=== PATIENT | female | born 1985 | race Caucasian/White ===

== ENCOUNTER 2024-10-27 10:43 | Outpatient (AMB) | payer BC, SELFPAY ==
--- NOTE | 2024-10-27 11:04 | A.SPINEOV_ITS ---
Intake Visit Reasons: Left leg numbness hx of spinal fusion Intake Note: Ms. Eric is here today c/o left leg numbness. MRI done @ MRI done @ [facility] (brought disc) Manufacturing Assistant Required: No Assessment & Plan Assessment & Plan (1) Lumbar spinal stenosis due to adjacent segment disease after fusion procedure: Code(s): M48.061 - Spinal stenosis, lumbar region without neurogenic claudication; M51.369 - Other intervertebral disc degeneration, lumbar region without mention of lumbar back pain or lower extremity pain; Z98.1 - Arthrodesis status Category: Medical Plan: Dear colleague Thank you for referring Nuris Eric to the office today with a chief complaint of left leg pain and numbness. HPI: This 39-year-old female has a history of correction of the lumbar spondylolisthesis L4-5 in 2011 from which she recovered well. 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 She states that since approximately 1 year she is developing pain and numbness after standing. The pain radiates from her left back to the front of her left thigh and sometimes goes below the knee. She denies weakness. Sitting down alleviates his symptoms. The right side is unaffected. PMH: Lumbar fusion,Loeys juvenal syndrome, hernia repair Medications: None Allergies: Vancomycin Social history: Self employed. Nonsmoker Physical Exam: Pleasant female. Straight leg raise is negative. No abnormalities for motor sensation or reflexes. She is able to reproduce the numbness down the left leg after standing in the office. Radiological Studies: MRI done at [facility] on on 09/27/2024 shows status post L4-5 lumbar fusion. Importantly there is severe left L4 foraminal stenosis due to adjacent segment disease and a unilateral collapse of the disc space towards the left side. There is a grade 1 spondylolisthesis at this level. Dynamic lumbar x-rays shows the L3-4 spondylolisthesis and unilateral collapse of the disc space causing a deviation of the lumbar spine in the coronal plane towards the left side. Impression/Plan: This patient is suffering from a left L4 radiculopathy due to severe neuroforaminal stenosis. The treatment for this is surgery. There are 2 options being a left L4 foraminotomy or an L3-4 lumbar fusion to indirectly decompress the nervous structures and to correct the spinal deformity and spondylolisthesis. I prefer the 2nd option. I think a foraminotomy only will not be a permanent solution due to the presence of the deformity due to the unilateral disc collapse and spondylolisthesis. I offered her an oblique lumbar interbody fusion L3-4 and removal of posterior L4-5 instrumentation and reinsertion of instrumentation at L3-L4. She will call the office of her previous surgeon to see what kind of instrumentation was used during the 1st surgery. She is tentatively scheduled for 12/13/2024 Thank you for allowing me to participate in your patients care. total time spent was 50 minutes in counseling ,coordination of plan, personal review of imaging, surgical decision making and subsequent plan Rod Palmer MD, PhD Spine Fellowship Trained Neurosurgeon Director, [facility] Orders: Orders XR lumbar spine 4V min Today M48.061 - Spinal stenosis, lumbar region without neurogenic claudication, M51.369 - Other intervertebral disc degeneration, lumbar region without mention of lumbar back pain or lower extremity pain, Z98.1 - Arthrodesis status Coding Level of Care Code New Pt Level 4 (89094) Diagnoses Lumbar spinal stenosis due to adjacent segment disease after fusion procedure M48.061; M51.369; Z98.1
== END 2024-10-27 12:31 | disposition home or self-care (01) ==
LOC: HO.HNS 10:43
PROVIDERS: PCP Internal Medicine; Visit Provider Neurological Surgery
DX: M48.061 Spinal stenosis, lumbar region without neurogenic claudication (principal); M51.369 Other intervertebral disc degeneration, lumbar region without mention of lumbar back pain or lower extremity pain; Z98.1 Arthrodesis status
CPT/HCPCS: 99204

== ENCOUNTER 2024-10-27 10:43 | Outpatient (REF) | payer BC, SELFPAY ==
--- NOTE | ~2024-10-27 | XR_ITS ---
EXAMINATION: X-ray lumbar spine 4 views minimal. CLINICAL INFORMATION: Spinal stenosis, lumbar region without neurogenic claudication. TECHNIQUE: AP and lateral views neutral flexion and extension position. COMPARISON: None FINDINGS: Status post transpedicle screws at L4 and L5 and intervertebral disc spacer placement at L4-5. No gross malalignment in neutral, flexion or extension position. Status post laminectomies L4-5 and resection of the posterior spinous processes. Levoconvex rotoscoliosis apex at L1-2. Multilevel lower thoracic and upper lumbar spondylosis. Vascular clips right upper quadrant abdomen and likely cholecystectomy procedure. XR/XR lumbar spine 4V min IMPRESSION: Status post posterior lumbar fusion and intervertebral disc spacer placement at L4-5 without acute fracture or gross listhesis nor instability. Electronically signed by: Puneet Quijano MD 10/27/2024 12:18 PM EDT
== END 2024-10-27 10:44 | disposition home or self-care (01) ==
LOC: HO.HOSX 10:43
PROVIDERS: PCP Internal Medicine; Visit Provider Neurological Surgery
DX: M48.061 Spinal stenosis, lumbar region without neurogenic claudication (principal); Z98.1 Arthrodesis status; M51.369 Other intervertebral disc degeneration, lumbar region without mention of lumbar back pain or lower extremity pain
CPT/HCPCS: 72110

== ENCOUNTER → 2024-10-27 11:57 | Outpatient (BNV) | payer BC, SELFPAY | PROVIDERS: PCP Internal Medicine; Visit Provider Radiology Diagnostic Radiology | DX: M48.061 Spinal stenosis, lumbar region without neurogenic claudication (principal) | CPT/HCPCS: 72110 ==

== ENCOUNTER 2024-12-13 05:59 | Inpatient (IN) | payer BC, SELFPAY ==
[2024-11-29 12:19] VITALS: BP 111/58; PULSE 60; RESP 18; O2SAT 99; BMI 27.1
--- NOTE | 2024-11-29 12:33 | HO.ANESPROP2 ---
Documented by User: Brianna Morejon NP 12/11/24 14:59 HPI - Anesthesia Eval Consult details Narrative: 39yo F for L3-4 Oblique Lumbar Interbody Fusion and Removal of posterior L4-5 instrumentation (insertion @ L3-4, 12/13/24 No recent illness No CP/SOB with exercise 1 hour daily (treadmill/peloton) Loeys-Ej syndrome (connective tissue disease) - monitored by [facility] for AAA/fam hx. None for self TMJ s/p surgical repair 2012 - able to open fully with small shift to right PONV - scop patch effective Jehova's witness - no whole blood, no RBC, no platelets, no plasma - OK to accept albumin, TXA, clotting factors Mom is HCP and will be in waiting room [facility] Active Problems Active Problems: All Active Problems Lumbar spinal stenosis due to adjacent segment disease after fusion procedure (Acute) Past Medical History Medical History Arthritis PONV (postoperative nausea and vomiting) POTS (postural orthostatic tachycardia syndrome) TMJ (temporomandibular joint syndrome) Loeys-Ej syndrome Lumbar spinal stenosis Family History Family history of problems with anesthesia: No Surgical History Surgical History Hx laparoscopic cholecystectomy History of esophagogastroduodenoscopy (EGD) History of mandibular surgery Hx of knee surgery Hx of hernia repair Hx of spinal fusion History of Problems with Anesthesia: No Social History Social History Household Members Other:: mother Are you a primary patient care nursing assistant to a significant other at home: Yes (to mother) Do you presently have visiting nurse or other home services: No Patient Tobacco Use Status: Never used Tobacco Use of substances other than those prescribed or required for medical reasons: No Have you been hit, kicked, punched, or otherwise hurt by someone within the past year? If so, by whom?: No Spiritual Healthcare Practices: no Protestant Healthcare Practices: yes-Jehovah Witness Cultural Healthcare Practices: no Are you DNR?: No Advance Directives: Yes (HCP & blood refusal) Advance Directives Information Provided: Yes Advance Directives on File: Yes Advance Directives Date on File: 11/29/24 Patient : No FDLMP: 11/20/24 : No Poor oral hygiene: No (TMJ) Meds Allergies Allergy/AdvReac Type Severity Reaction Status Date / Time vancomycin Allergy Severe family hx Verified 12/13/24 06:13 anaphylaxis w/sudden from IV form tree nut Allergy Intermediate hives, Verified 12/13/24 06:13 throat itching Home Medications ?Medication ?Instructions ?Recorded ?Confirmed ?Last Taken ?Type cetirizine 10 mg tablet (Zyrtec) 10 mg PO DAILY 11/29/24 11/29/24 Unknown History epinephrine 0.3 mg/0.3 mL 0.3 mg IM Q10M PRN Anaphylaxis 11/29/24 11/29/24 Unknown History injection, auto-injector fluticasone propionate 50 1 spray intranasal DAILY 11/29/24 11/29/24 Unknown History mcg/actuation nasal spray,suspension ibuprofen 200 mg tablet 400 mg PO Q6H PRN Pain 11/29/24 11/29/24 11/29/24 History multivitamin 1 tab PO QAM 11/29/24 11/29/24 Unknown History Exam Height,Weight and Vital Signs: Height 5 ft 8 in Weight 80.739 kg Last Vital Signs Pulse 60 11/29/24 12:19 Resp 18 11/29/24 12:19 BP 111/58 L 11/29/24 12:19 Pulse Ox 99 11/29/24 12:19 O2 Del Method Room Air 11/29/24 12:19 Pertinent Lab Results Pertinent Lab Results: [facility] 04/2024 from outside facility [place] Lab Results 11/29/24 Range/Units 13:18 WBC 7.7 (4.8-10.8) X10*3/uL RBC 4.69 (4.20-5.50) X10*6/uL Hgb 13.0 (12.0-16.0) g/dl Hct 41.2 (37.0-47.0) % MCV 87.8 (80.0-98.0) fL MCH 27.7 (27.0-33.0) pg MCHC 31.6 (31.0-35.0) g/dl RDW 14.3 (11.0-16.0) % Plt Count 327 (160-400) X10*3/uL MPV 9.6 (9.4-12.3) fL Absolute Nucleated RBC 0.000 (0.0-0.012) X10*3/uL Nucleated RBC % (auto) 0.0 (0.0-0.2) /100WBC Narrative Narrative: EKG 09/2023 SR @ 66 Low volt precordial leads ECHO 10/2023 Nml size LV. Nml global sys function. LVEF 55-60. No RWMA Trival MR No dilatation of aorta. Sinus of valsava 3.4cm Ao Sinus Valsalva 3.4cm No change from previous Airway Mallampati Class: I TM Dist: >3cm Neck ROM: Full Heart: RRR Lungs: CTAB Assessment and Plan Assessment Anesthesia Assessment: Anesthesia Plan Discussed and PAT Visit Final Anesthetic Review Family History of Problems with Anesthesia: No History of Problems with Anesthesia: No Documented by User: Jose Vazquez MD 12/13/24 07:16 [facility] Past Medical History Medical History Arthritis PONV (postoperative nausea and vomiting) POTS (postural orthostatic tachycardia syndrome) TMJ (temporomandibular joint syndrome) Loeys-Ej syndrome Lumbar spinal stenosis Functional capacity: independent ambulation Patient : No Surgical History Surgical History Hx laparoscopic cholecystectomy History of esophagogastroduodenoscopy (EGD) History of mandibular surgery Hx of knee surgery Hx of hernia repair Hx of spinal fusion Social History Social History Household Members Other:: mother Are you a primary patient care nursing assistant to a significant other at home: Yes (to mother) Do you presently have visiting nurse or other home services: No Patient Tobacco Use Status: Never used Tobacco Use of substances other than those prescribed or required for medical reasons: No Have you been hit, kicked, punched, or otherwise hurt by someone within the past year? If so, by whom?: No Spiritual Healthcare Practices: no Protestant Healthcare Practices: yes-Jehovah Witness Cultural Healthcare Practices: no Are you DNR?: No Advance Directives: Yes (HCP & blood refusal) Advance Directives Information Provided: Yes Advance Directives on File: Yes Advance Directives Date on File: 11/29/24 Patient : No FDLMP: 11/20/24 : No Poor oral hygiene: No (TMJ) Meds Allergies Allergy/AdvReac Type Severity Reaction Status Date / Time vancomycin Allergy Severe family hx Verified 12/13/24 06:13 anaphylaxis w/sudden from IV form tree nut Allergy Intermediate hives, Verified 12/13/24 06:13 throat itching Home Medications ?Medication ?Instructions ?Recorded ?Confirmed ?Last Taken ?Type cetirizine 10 mg tablet (Zyrtec) 10 mg PO DAILY 11/29/24 11/29/24 Unknown History epinephrine 0.3 mg/0.3 mL 0.3 mg IM Q10M PRN Anaphylaxis 11/29/24 11/29/24 Unknown History injection, auto-injector fluticasone propionate 50 1 spray intranasal DAILY 11/29/24 11/29/24 Unknown History mcg/actuation nasal spray,suspension ibuprofen 200 mg tablet 400 mg PO Q6H PRN Pain 11/29/24 11/29/24 11/29/24 History multivitamin 1 tab PO QAM 11/29/24 11/29/24 Unknown History Exam Airway Other: normal cognition Assessment and Plan Final Anesthetic Review NPO: Yes ASA Class: II Final Preanesthetic Review: No Changes in Pt Med Stat, Meds/Allgs Chart Reviewed, Consent Obtained/Reviewed and Anes Risks/Benef Reviewed Patient Risk: Intermediate Procedure Risk: Intermediate Anesthetic Plan Anesthetic Plan: GA Disposition: Standard PACU
[2024-11-29 13:59] LABS: Hematocrit 41.2 % (37.0-47.0); Mean Corpuscular HGB Conc 31.6 g/dl (31.0-35.0); Mean Corpuscular Hemoglobin 27.7 pg (27.0-33.0); Mean Corpuscular Volume 87.8 fL (80.0-98.0); Mean Platelet Volume 9.6 fL (9.4-12.3); Platelet Count 327 X10*3/uL (160-400); Red Blood Count 4.69 X10*6/uL (4.20-5.50); Red Cell Distribution Width 14.3 % (11.0-16.0); White Blood Count 7.7 X10*3/uL (4.8-10.8)
[2024-12-13] VITALS (9 sets, daily range): BP systolic 102–111; BP diastolic 43–57; PULSE 58–80; RESP 12–18; TEMP 36–37.8; O2SAT 97–100; BMI 26.8
--- NOTE | ~2024-12-13 | FL_ITS ---
EXAMINATION: FL GUIDANCE ONLY HISTORY: L3-4 OLIF COMPARISON: Correlation is made to plain films of the lumbar spine dated 10/27/2024. TECHNIQUE: Fluoroscopy time: 1 minute, 20 seconds. Cumulative Dose: 40.31 mGy. DAP: 15.31 mGym2 Images: 4. FINDINGS: Images demonstrate removal of pedicle screws and spinal stabilization rods at L4-5 and placement of pedicle screws and spinal stabilization rods at L3-4. An intervertebral spacer at L3-4 is also noted. FL/FL guidance in OR IMPRESSION: Fluoroscopy during procedure. Please see procedure report for additional information. Electronically signed by: Zachery Martinez MD 12/13/2024 11:27 AM EDT
[2024-12-13 06:15] LABS: UPreg QC Valid YES; Urine Pregnancy NEGATIVE (NEGATIVE)
[2024-12-13] MEDS: methocarbamoL 750 MG TABLET PO ×3 (06:23→21:34)
[2024-12-13] MEDS: Gabapentin 300 MG CAPSULE PO ×3 (06:23→21:33)
[2024-12-13] MEDS: Lactated Ringers 1,000 ML 100 ML IVCONT (06:29)
--- NOTE | 2024-12-13 06:55 | MHC.SHP ---
Pre-Procedural Eval Section A - 24 Hr Update-Section A only Date of Service: 12/13/24 Section B - Complete if H&P > 30 days Chief Complaint: s/p L3-4 OLIF Allergies: Allergies Allergy/AdvReac Type Severity Reaction Status Date / Time vancomycin Allergy Severe family hx Verified 12/13/24 06:13 anaphylaxis w/sudden from IV form tree nut Allergy Intermediate hives, Verified 12/13/24 06:13 throat itching Review of Systems Sugical H&P ROS: Negative: Constitution, Cardiovascular, Respiratory, Neurological, Psychiatric, Hem-Onc, Allergic/Immunologic, Gastrointestinal, Genitourinary, Musculoskeletal, Integumentary, Endocrine and Eyes/Ears/Nose/Throat Exam Surgical H&P Exam: Not Evaluated: HEENT, Not Evaluated: Heart, Not Evaluated: Lungs, Not Evaluated: Extremities, Not Evaluated: Abdomen, Not Evaluated: Skin and Not Evaluated: Neurological Exam Comment: The patient is awake, alert, no acute distress. Proposed surgical incision site is clean, dry, with no signs of recent trauma. Plan Diagnosis/Plan: Unchanged I have reviewed the history and physical and performed a pertinent physical examination on my patient. No changes have occurred unless specified. Plan remains the same, L3-4 OLIF with removal of instrumentation at L4-5, reinsertion of instrumentation at L3-4. Time Spent With Patient Time: Total time managing care of this patient today _12___ minutes.
--- NOTE | 2024-12-13 07:05 | PHA.MEDREC ---
Pharmacy Consult ? Medication Reconciliation Pharmacy has completed the medication reconciliation. Med rec checked by kathryn
[2024-12-13] MEDS: Scopolamine 1.5 MG PATCH.TD.3 EAR-BEHIND (07:20)
[2024-12-13] MEDS: ceFAZolin Sodium/Dextrose,Iso 2 GM/50 ML PIGGYBACK IV ×3 (07:30→19:57)
[2024-12-13] MEDS: Acetaminophen 1,000 MG/100 ML PIGGYBACK 400 MG IV (07:30)
--- NOTE | 2024-12-13 12:02 | W.PM.OPN ---
Operative Note Operative Note Date of Service: 12/13/24 Narrative: Preop Diagnosis: 1.) Patient degenerative disc disease L3-4 2.) Status post anterior lumbar interbody fusion L4-5 with posterior instrumentation in another institution Procedure: 1) L3-4 discectomy, arthrodesis and implantation cage through an anterolateral, retroperitoneal approach 2) removal L4-5 posterior instrumentation, including crosslink 3) insertion L3-4 pedicle screws followed by posterolateral fusion. 4) allograft Consent Informed Consent was obtained for this operation. I have explained the nature, purpose and benefits of the operation. I have discussed the risks and benefit of the operation including possible complications or adverse events with patient/family. Alternative(s) were discussed with the patient with their relative benefits and risks as well as the consequences of not accepting the operation were included in obtaining consent. Surgeon: SERA NEVILLE MD, PHD Procedure Assisted By: Jori Bower Description of Procedure This 39-year-old female had an anterior lumbar interbody fusion done L4-5 and posterior instrumentation in 2011. She presented to my clinic with adjacent degenerative disc disease L3-4. The patient was offered an oblique lumbar interbody fusion L3-4; removal of the previous L4-5 instrumentation and placement of new L3-4 instrumentation with a posterolateral fusion.. The procedure and complications were explained. The patient was consented. The patient was brought to the operating room and endotracheally intubated. The patient was turned in a lateral position with the left side up. Prep and drape was done followed by timeout. A small incision was made in the left lower abdominal quadrant. The muscle fascia was opened after which the 3 muscle layer was split to enter the retroperitoneal space. Dilators were docked in the anterior one third of the L3-4 disc space followed by a retractor. The retractor was opened. A significant amount of scar tissue was covering the L3-4 disc space which was carefully opened and resected to expose the L3-4 disc space. An annulotomy was done after which an elevator Mayo was used to release the disc material from its endplates and to perforate the contralateral side. A partial discectomy was done. An 8 mm and 10 mm height trial implant was inserted. The discectomy was completed. The endplates were prepared. An 10 x 45 mm with 6 degree lordosis 4 web cage filled with allograft was inserted into the disc space under fluoroscopic guidance. This resulted in mandaen of the disc height. The retractor was removed. Hemostasis was done. The incision was closed in 2 layers. Steri-Strips used to approximate incision. An OpSite with Tegaderm was used to cover the incision. This marked first part of the procedure. The patient was turned prone on the Tor spine table. 2C arms were installed for fluoroscopy. Prep and drape was done followed by a second timeout. Injection of 10 cc of Exparel at the bilateral [] transverse processi for a muscular erector spinae block. Two paramedian incisions were made over the previous L4-5 instrumentation. The physician assistant film editor expose the right-sided instrumentation. He of the locking caps from the screws and crosslink and was able to move the jacquie. My side was more cumbersome. I had to drill out bone and do the crosslink from scar tissue. During this maneuver a small violation of the dura occurred which was tamponade with DuraGen. The procedure continued as planned. The locking caps were removed from the screws and the crosslink and eventually the crosslink could be removed. Fortunately no other dural tears occurred with this maneuver. The L4-5 pedicle screws were removed and a new 7.5 x 45 mm screw was inserted in the bilateral L4 pedicles. For the L3 pedicle screw placement, a pediguard tap was used to create a transpedicular trajectory into the vertebral body. A K wire was placed. A specially designed instrument was advanced over the K wire to decorticate the posterolateral gutter in preparation for the posterolateral fusion. A pedicle screw was advanced over the K wire and the K wire was removed. In L3, a 6.5 x 45 mm screw was inserted bilaterally. The pedicle screws were connected with 40 mm jacquie bilaterally and locked down with locking caps. The extension towers were re moved. The posterolateral gutter was filled with allograft to complete the posterolateral L3-4 fusion Hemostasis was done and the incision was closed in 3 layers with a running nylon for the skin. An OpSite with tegaderm was used to cover the incision. All sponge and needle counts were correct. Patient was extubated and transferred in stable is to recovery room. Anesthesia: General Estimated Blood Loss (ml): 50 mL Duration of Surgery: 3 hours Complications: None Postoperative Plan: Admit to inpatient for clinical observation
[2024-12-13] MEDS: 0.9 % Sodium Chloride 1,000 ML 75 ML IVCONT (12:04)
[2024-12-13] MEDS: Ketorolac Tromethamine 15 MG/ML VIAL IVPUSH ×3 (12:22→23:31)
[2024-12-13] MEDS: ondansetron HCL 4 MG/2 ML VIAL IVPUSH (12:22)
[2024-12-13] MEDS: Acetaminophen 325 MG TABLET 975 MG PO ×2 (13:06→21:33)
[2024-12-13] MEDS: oxyCODONE HCl Immed Release 5 MG TABLET 10 MG PO (13:06)
[2024-12-13] MEDS: Multivitamin TABLET 1 TAB PO (13:06)
[2024-12-13] MEDS: Metoclopramide HCl 10 MG/2 ML VIAL 5 MG IVPUSH ×2 (15:55→23:32)
[2024-12-13] MEDS: HYDROmorphone HCl 1 MG/ML SYRINGE IVPUSH (19:56)
[2024-12-13] MEDS: Docusate Sodium 100 MG CAPSULE PO (21:33)
[2024-12-14] MEDS: ceFAZolin Sodium/Dextrose,Iso 2 GM/50 ML PIGGYBACK IV (01:34)
[2024-12-14] MEDS: 0.9 % Sodium Chloride 1,000 ML 75 ML IVCONT (01:36)
[2024-12-14] MEDS: Acetaminophen 325 MG TABLET 975 MG PO ×2 (03:06→14:04)
[2024-12-14] MEDS: ondansetron HCL 4 MG/2 ML VIAL IVPUSH (03:06)
[2024-12-14 03:34] VITALS: BP 105/54; PULSE 74; RESP 18; TEMP 37.6; O2SAT 99
[2024-12-14] MEDS: Ketorolac Tromethamine 15 MG/ML VIAL IVPUSH ×2 (05:48→11:45)
--- NOTE | 2024-12-14 06:06 | PC.NURSE ---
pt vomited about 3 times over night at 12 mn she had temp 100.1 she is on scheduled tylenol next recheck of temp 99.7 and she received reglan and zofran she stated it happened every time she gets po medications dr Quiroz notified . Neuros intact will monitor
[2024-12-14 07:44] VITALS: BP 100/55; PULSE 73; RESP 18; TEMP 37.3; O2SAT 97
[2024-12-14] MEDS: Docusate Sodium 100 MG CAPSULE PO (07:50)
[2024-12-14] MEDS: Fluticasone Propionate Nasal 16 GM SPRAY 1 SPRAY NOSTRIL-B (07:50)
[2024-12-14] MEDS: methocarbamoL 750 MG TABLET PO ×2 (07:50→14:38)
[2024-12-14] MEDS: Gabapentin 300 MG CAPSULE PO ×2 (07:50→14:38)
[2024-12-14] MEDS: Multivitamin TABLET 1 TAB PO (07:50)
[2024-12-14] MEDS: Loratadine 10 MG TABLET PO (07:51)
--- NOTE | 2024-12-14 08:30 | PC.NURSE ---
jean baptiste catheter was removed at 8am this morning by this nurse with orders from surgeon. Patient tolerated well and catheter intact on removal. Patient is due to void by 2pm on 12/14. There was 350 of clear yellow urine in the bag on removal.
--- NOTE | 2024-12-14 08:44 | HO.POSTANES ---
Post Anesthesia Evaluation Post Anesthesia Evaluation Date of Service: 12/14/24 Vital Signs: Vital Signs Temp Pulse Resp BP Pulse Ox O2 Del Method 12/14/24 07:44 99.1 F 73 18 100/55 L 97 Room Air 12/14/24 03:34 99.7 F 74 18 105/54 L 99 Room Air 12/13/24 23:38 100.1 F 80 17 102/57 L 99 Room Air Anesthesia: General Endotracheal-GETA Mental Status: Awake Pain Control: Satisfactory Nausea/Vomiting: None Hydration: Adequate Anesthesia-Related Issues: No Anes. Related Issues
--- NOTE | 2024-12-14 14:46 | PM.DS ---
DS: Providers Provider Date of Service: 12/14/24 Date of admission: 12/13/24 05:59 Date of discharge: 12/14/24 Primary care physician: Lincoln Govea MD DS: Summary Time Attestation Discharge Coordination Time (in mins): 12 Quality: Safe Use of Opioids Does Pt have an Active Cancer Diagnosis on the Problem List?: No Quality: Stroke Does the patient have a stroke diagnosis?: No Physical Exam Vital Signs: Vital Signs: Last Vital Signs Temp 99.1 F 12/14/24 07:44 Pulse 73 12/14/24 07:44 Resp 18 12/14/24 07:44 BP 100/55 L 12/14/24 07:44 Pulse Ox 97 12/14/24 07:44 O2 Del Method Room Air 12/14/24 07:44 O2 Flow Rate 4 12/13/24 11:30 BMI result Body Mass Index 26.8 Discharge Plan Discharge Anticipated Discharge Date/Time: 12/14/24 14:46 Patient Disposition: Home, Self-Care Discharge Diagnosis: s/p L3-4 OLIF Referrals: Lincoln Govea MD [Primary Care Provider, Internal Medicine] - 1 Week Discharge Medications: New oxycodone 5 mg tablet See Rx Instructions .ROUTE .COMPLEX PRN (Reason: pain) Qty: 30 0RF Rx Instructions: Take 1-2 tabs by mouth every 4 hours; Partial Fill upon patient request. Continued multivitamin Tablet 1 tab PO QAM cetirizine [Zyrtec] 10 mg Tablet 10 mg PO DAILY ibuprofen 200 mg Tablet 400 mg PO Q6H PRN (Reason: Pain) epinephrine 0.3 mg/0.3 mL Auto-Injector 0.3 mg IM Q10M PRN (Reason: Anaphylaxis) Rx Instructions: for 2 doses fluticasone propionate 50 mcg/actuation Rule,Suspension 1 spray INTRANASAL DAILY Rx Instructions: administer into each nostril Discharge Orders: Discharge Order (Routine); Ordered 12/14/24 Ordered By: Jori Bower Diet: Advance to usual diet Activity on Discharge: As tolerated Stand Alone Forms: Patient Portal Discharge page Print Language: Ugandan Activity Restrictions/Additional Instructions: After your spinal surgery we ask you to observe the following restrictions/guidelines: Activity: It is normal to feel some discomfort as you increase your activity, but that will improve with time. We ask you avoid heavy lifting or acitivities that cause pain. As a general rule, 8lbs is a safe limit for lifting right after surgery. Walk as much as you feel comfortable but not to exhaustion. You will feel extra tired the first few days after surgery. Stay well hydrated. It is OK to walk up and down stairs You may return to driving when you are off narcotics (such as vicodin, oxycodone, dilaudid, etc), and you are back to normal functional capacity. If you have any concerns please check with office before driving. Return to work is specific to each patient and each surgery, so please speak with your doctor/PA at first follow up. Please bring paperwork such as FMLA at that time if you need it filled out. Medications: We recommend you take 1,000mg Tylenol every 8 hours for the first few weeks after surgery, if you do not have any liver issues and can tolerate this medication. Do not exceed 4,000mg daily. We will give you a short supply of narcotics after surgery (usually one weeks worth). If you need more please call the office but do not use more than prescribed. You will need to give our office 48 hours notice if you need narcotics refilled and we do not fill narcotics on weekends or evenings. If you are on a narcotic, it is a good idea to take a stool softener such as colace or senna to avoid constipation If you take blood thinner such as aspirin, Plavix, Coumadin, Effient, Eliquis etc for conditions such as Afib, DVT, Pulmonary embolus, coronary disease, stents etc please speak with your surgeon about specific details as to when you can resume these medications. You can resume NSAIDs on post op day 1 (eg: Motrin, Naproxen, etc). Follow up: Please call the office, , after surgery to arrange a 3 week follow up for wound check. Wound Care: You may remove your dressing on the first day after surgery. ?You may ?leave open to air. Please do not remove the steri strips underneath. they will fall off on their own in one week. IT IS NORMAL FOR THE WOUND TO OOZE OR BE BLOODY FOR A FEW DAYS AFTER SURGERY. ?IF THIS HAPPENS JUST PLACE NEW DRESSING OVER IT TO AVOID STAINING CLOTHES. You may shower on post op day # 1 We ask that you do not let the water soak the wound. If it does get wet, just towel dry lightly. Please do not scrub your incision or place any type of chemical/ointment on the wound. No tub baths, pools or jacuzzis for one month. If you have any leaking or redness from your wound, or fevers, please call the office. YOU HAD A SMALL SPINAL FLUID LEAK SEEN AT THE TIME OF SURGERY. IT IS NORMAL TO EXPERIENCE MILD HEADACHES WHEN THIS HAPPENS. IF YOU EXPERIENCE SEVERE HEADACHES PLEASE CALL OUR OFFICE TO UPDATE US. USUALLY IT WILL GO AWAY IF YOU STAY FLAT IN BED FOR A DAY. IF YOU EXPERIENCE ANY LEAKING FROM YOUR WOUND WHICH LOOKS LIKE CLEAR WATER, WE ASK THAT YOU CALL US RIGHT AWAY. [phone] Care Plan Goals: Return to normal activity as tolerated Health Concerns: None Plan of Treatment: Follow-up in clinic in 2-3 weeks Assessment: POD: 1 Procedure: L3-4 OLIF with removal of posterior instrumentation at L4-5, incidental durotomy Nuris is a pleasant 39-year-old female who underwent L3-4 OLIF with removal of posterior instrumentation at L4-[address] Palmer. She had a small incidental durotomy that was repaired during surgery. She spent overnight with HOB 30 degrees and jean baptiste in on bed bound precautions. She was asymptomatic overnight, prompting us to lift her restrictions and request PT evaluation. She did well with PT today and had no dizziness, headaches, or nausea / vomiting when OOB. She feels her pre-operative symptoms have much improved since surgery. She still reports mild pain in her low back with good relief with pain medication. He is voiding well, tolerating diet. Afebrile, vital signs stable. Full strength 5/5 bilateral LE's. Back dressings have some staining without signs of hematoma. No active sanguineous drainage. Area is dry. Plan: Pleasant 39-year-old female who underwent L3-4 OLIF with removal of posterior instrumentation at L4-[address] Palmer. She has been progressing normally in his asymptomatic from her incidental durotomy. Patient meets criteria to be medically discharged home. He was seen at bedside with Dr. Palmer. I will send in her pain medication to [facility] pharmacy. Jori Palmer MD,PhD [facility]
[2024-12-14 15:06] VITALS: BP 105/52; PULSE 85; RESP 18; TEMP 36.6; O2SAT 99
== END 2024-12-14 15:23 | disposition home or self-care (01) | DRG 304 ==
LOC: HO.SSSA 06:04 → HO.S3 11:35
PROVIDERS: Nurse Practitioner; Admitting Provider Neurological Surgery; PCP Internal Medicine; Visit Provider Neurological Surgery
PROC: 0SG00A0 Fusion of Lumbar Vertebral Joint with Interbody Fusion Device, Anterior Approach, Anterior Column, Open Approach (ICD-10-PCS; principal; 2024-12-13 07:30)
DX: M48.061 Spinal stenosis, lumbar region without neurogenic claudication (principal); Q87.89 Other specified congenital malformation syndromes, not elsewhere classified; M51.369 Other intervertebral disc degeneration, lumbar region without mention of lumbar back pain or lower extremity pain; Z98.1 Arthrodesis status; Z79.899 Other long term (current) drug therapy
CPT/HCPCS: 36415; 81025; 85027; 97161; C1713; C1763; C1889; C9250; J0131; J0665; J0666; J0690; J1100; J1171; J1885; J2003; J2250; J2405; J2704; J2765; J3010; L8699

== ENCOUNTER → 2024-12-13 05:59 | Outpatient (BNV) | payer BC, SELFPAY | PROVIDERS: Admitting Provider Neurological Surgery; PCP Internal Medicine; Visit Provider Neurological Surgery | DX: M51.362 Other intervertebral disc degeneration, lumbar region with discogenic back pain and lower extremity pain (principal) | CPT/HCPCS: 20930; 22558; 22612; 22840; 22853; 99499 ==

== ENCOUNTER 2024-12-27 13:19 | Outpatient (AMB) | payer BC, SELFPAY ==
--- NOTE | 2024-12-27 13:33 | A.SPINEOV_ITS ---
Intake Visit Reasons: Suture Removal Intake Note: Ms. Eric is here today to have her Sutures removed. Educational Specialist Required: No Allergies vancomycin Allergy (Severe, Verified 12/27/24 13:39) family hx anaphylaxis w/sudden from IV form tree nut Allergy (Intermediate, Verified 12/27/24 13:39) hives, throat itching Assessment & Plan Assessment & Plan (1) Lumbar spinal stenosis due to adjacent segment disease after fusion procedure: Code(s): M48.061 - Spinal stenosis, lumbar region without neurogenic claudication; M51.369 - Other intervertebral disc degeneration, lumbar region without mention of lumbar back pain or lower extremity pain; Z98.1 - Arthrodesis status Category: Medical Plan Procedure: L3-4 OLIF with revision of existing instrumentation and incidental durotomy. Nuris comes in today for suture removal after having an L3-4 OLIF with revision of posterior instrumentation and incidental durotomy completed by Dr. Palmer. To recap prior to surgery she was evaluated in clinic and reported the pain and numbness in her back with standing. She also reported pain in her left back that radiates to the front of her left thigh and sometimes goes below the knee. Today, she reports the bulk of her pain that she had prior to surgery has resolved. In addition to this, the dizziness and headaches that she had in the immediate postoperative period have resolved. No new neurological deficits. The patient ambulates well and rises from a seated position without difficulty. She uses no assistive devices to ambulate. Her posterior incisions were noted to be closed with no signs of drainage or erythema. I removed 2 running sutures from the 2 incisions on her back. She tolerated this procedure well. I would like Nuris to follow up again with us in 6 weeks with a set of x-rays for her 2nd postoperative appt. Jori Palmer MD,PhD [facility] Coding Level of Care Code Global (92602) Diagnoses Lumbar spinal stenosis due to adjacent segment disease after fusion procedure M48.061; M51.369; Z98.1
== END 2024-12-27 14:28 | disposition home or self-care (01) ==
LOC: HO.HNS 13:20
PROVIDERS: PCP Internal Medicine; Visit Provider Physician Assistant
DX: M48.061 Spinal stenosis, lumbar region without neurogenic claudication (principal); M51.369 Other intervertebral disc degeneration, lumbar region without mention of lumbar back pain or lower extremity pain; Z98.1 Arthrodesis status
CPT/HCPCS: 99024

== ENCOUNTER 2025-02-07 08:31 | Outpatient (REF) | payer BC, SELFPAY ==
--- NOTE | ~2025-02-07 | XR_ITS ---
Exam: 4 view lumbar spine INDICATION: M48.061 - Spinal stenosis, lumbar region without neurogenic claudication Prior: October 27, 2024 TECHNIQUE: AP, and lateral: Flexion, neutral, and extension view x-rays of the lumbar spine. FINDINGS: Peripheral quadrant clips are likely from cholecystectomy. 5 nonrib-bearing lumbar segments are noted. There is mild convex left scoliosis of the thoracolumbar junction. Again noted are postsurgical changes with posterior pedicle screws and rods at L3-4. There is an interbody spacer at L3-4 without subsidence. There is anterior screw fixation at L5-S1 with interbody bone graft area Laminectomy has been performed at L4-5. Since the prior, pedicle screws were removed from L5 in place within L3. There is a limbus vertebrae involving anterior superior L3. There is stable grade 1 retrolisthesis at L3-4. XR/XR lumbar spine 4V min Impression: Postsurgical changes without evidence of instability. Electronically signed by: Milad Armenta MD 02/07/2025 03:45 PM EDT
--- OUTSIDE RECORDS SUMMARY | 2025-02-08 09:25 | XMS_ITS | Encounter Summary ---
Author Organization [facility] Address [address] [place] [phone] Phone Care Team Providers Care Manager Local Name Role Phone Lincoln Govea MD Primary Care Provider Encounter Details Date Type Department Care Team (Late st Contact Info) Description 11/12/2020 Procedure Pass [facility], Ct Scan - [address] [address] Social History Tobacco Use Types Packs/Day Years [...] on filedocumented in this encounter Care Teams Manager Local Relationship Specialty Start Date End Date Lincoln Govea MD [address] [place] [phone] [email or web address] PCP - General Internal Medicine 08/14/20 documented as of this encounter Additional Source Comments The information contained in this document represents components of the legal health record. It is not the complete legal health record.[facility]
== END 2025-02-07 08:32 | disposition home or self-care (01) ==
LOC: HO.HOSX 08:31
PROVIDERS: Visit Provider Physician Assistant
DX: M48.061 Spinal stenosis, lumbar region without neurogenic claudication (principal); M51.369 Other intervertebral disc degeneration, lumbar region without mention of lumbar back pain or lower extremity pain; Z98.1 Arthrodesis status
CPT/HCPCS: 72110

== ENCOUNTER 2025-02-07 13:13 | Outpatient (AMB) | payer BC, SELFPAY ==
--- NOTE | 2025-02-07 13:38 | HO.SPINEOV ---
Intake Visit Reasons: 2nd post op with xrays Intake Note: Ms. Eric is here today for her 2nd post op with xrays. Supervisor Screen Printing Required: No Allergies vancomycin Allergy (Severe, Verified 02/07/25 13:38) family hx anaphylaxis w/sudden from IV form tree nut Allergy (Intermediate, Verified 02/07/25 13:38) hives, throat itching Assessment & Plan Assessment & Plan (1) Lumbar spinal stenosis due to adjacent segment disease after fusion procedure: Code(s): M48.061 - Spinal stenosis, lumbar region without neurogenic claudication; M51.369 - Other intervertebral disc degeneration, lumbar region without mention of lumbar back pain or lower extremity pain; Z98.1 - Arthrodesis status Category: Medical Plan Procedure: L3-4 OLIF with revision of existing instrumentation and incidental durotomy. Nuris comes in today for hwe 2nd postop appt. after having an L3-4 OLIF with revision of posterior instrumentation and incidental durotomy completed by Dr. Palmer. To recap prior to surgery she was evaluated in clinic and reported the pain and numbness in her back with standing, she reported near complete resolution of her pain at her last clinic visit. Today she reports her pain has continued to improve. She has been completing ADLs and meaningful activities pain free. She asked several questions regarding the postoperative healing course, all of which I answered to the best of my ability. She obtained a set of dynamic lumbar spine x-rays during this visit which we reviewed together. They show stable placement of her surgical construct. No new neurological deficits. The patient ambulates well and rises from a seated position without difficulty. She uses no assistive devices to ambulate. Her posterior and lateral incision sites are closed and well healed. I would like Nuris to follow up again with us in 1 year for a subsequent follow-up visit. We will obtain a CT scan 10 months out from surgery. Jori Palmer MD,PhD [facility] Orders: Orders XR lumbar spine 4V min Today M48.061 - Spinal stenosis, lumbar region without neurogenic claudication, M51.369 - Other intervertebral disc degeneration, lumbar region without mention of lumbar back pain or lower extremity pain, Z98.1 - Arthrodesis status Coding Level of Care Code Global (27047) Diagnoses Lumbar spinal stenosis due to adjacent segment disease after fusion procedure M48.061; M51.369; Z98.1
--- OUTSIDE RECORDS SUMMARY | 2025-02-07 14:05 | XMS_ITS | Encounter Summary ---
Author Organization [facility] Address [address] [place] [phone] Phone Care Team Providers Care Rug Measurer Name Role Phone Lincoln Govea MD Primary Care Provider Encounter Details Date Type Department Care Team (Late st Contact Info) Description 11/12/2020 Procedure Pass [facility], Ct Scan - [address] [address] Social History Tobacco Use Types Packs/Day Years Used Date Smoking Tobacco: Never Assessed Comments Unknown Sex and Gender Information Value Date Recorded Sex Assigned at Female 10/02/2020 4:37 PM EDT Legal Sex Female 1:06 PM EST Gender Identity Female 10/02/2020 4:37 PM EDT Sexual Orientation Not on file documented as of this encounter Plan of Treatment Not on file documented as of this encounter Visit Diagnoses Not on filedocumented in this encounter Care Teams Rug Measurer Relationship Specialty Start Date End Date Lincoln Govea MD [address] [place] [id number] [email or web address] PCP - General Internal Medicine 08/14/20 documented as of this encounter Additional Source Comments The information contained in this document represents components of the legal health record. It is not the complete legal health record.[facility]
== END 2025-02-07 14:04 | disposition home or self-care (01) ==
LOC: HO.HNS 13:14
PROVIDERS: PCP Internal Medicine; Visit Provider Physician Assistant
DX: M48.061 Spinal stenosis, lumbar region without neurogenic claudication (principal); M51.369 Other intervertebral disc degeneration, lumbar region without mention of lumbar back pain or lower extremity pain; Z98.1 Arthrodesis status
CPT/HCPCS: 99024

== ENCOUNTER → 2025-02-07 13:21 | Outpatient (BNV) | payer BC, SELFPAY | PROVIDERS: Visit Provider Radiology Diagnostic Radiology | DX: M48.061 Spinal stenosis, lumbar region without neurogenic claudication (principal) | CPT/HCPCS: 72110 ==